=== PATIENT | female | born 1960 | race Caucasian/White ===

== ENCOUNTER 2020-02-26 21:07 | Inpatient (IN) | payer MEDICAID ==
[~2020-02-26] VITALS: Ht 165.1 cm; Wt 66.7 kg
[2020-02-26 21:15] VITALS: BP 117/66
--- NOTE | 2020-02-26 21:15 | NUR ---
ms technology intern note patient received from EMS from [facility] as a direct admit. patient ambulated to bed. a/ox4. tolerating room air. respirations are even and unlabored. no s/s sob noted. c/o pain in right hand, informed awaiting doctors orders. in no apparent distress. iv access in LFA#20 patent and saline locked. ASPHALT PATCHER obtained vital signs and completed belongings list. initial physical assessment competed at this itme. skin assessment completed, photos taken and placed in chart. bed is low and locked, hob elevated in high fowlers, side rials up x2, jose juan light within reach. will continue to monitor.
[2020-02-26 22:30] VITALS: BP 117/66
[2020-02-26] MEDS ORDERED: QUET25TA PO (22:40)
[2020-02-26] MEDS ORDERED: LEVO50TA PO (22:40)
[2020-02-26] MEDS ORDERED: ATOR10TA PO (22:40)
[2020-02-26] MEDS ORDERED: ALLO100T PO (22:40)
--- NOTE | 2020-02-26 23:30 | NUR ---
DVT PUMPS APPLIED
[2020-02-27] MEDS ORDERED: ONDANSETRON HCL/PF 4 MG/2 ML VIAL IVP PRN
[2020-02-27] MEDS ORDERED: Z GUARD REMEDY 2 OZ OINT TP PRN
[2020-02-27] MEDS ORDERED: ZOLPIDEM TARTRATE 5 MG TABLET PO PRN
[2020-02-27] MEDS ORDERED: MAG HYDROX/AL HYDROX/SIMETH 30 ML UDC PO PRN
[2020-02-27] MEDS ORDERED: ACETAMINOPHEN 325 MG TABLET PO PRN
[2020-02-27] MEDS ORDERED: MAGNESIUM HYDROXIDE 30 ML UDC PO PRN
[2020-02-27] MEDS: IV NS 0.9% 1,000 ML IV PRN ×2 (00:02→18:27)
[2020-02-27] MEDS: MORPHINE SULFATE INJ 2 MG/ML DISP.SYRIN IV PRN ×3 (00:12→13:10)
--- NOTE | 2020-02-27 00:13 | NUR ---
MS RN NOTE ADMINISTERED PRN MORPHINE 2MG FOR PAIN 10/10 IN RIGHT HAND. WILL CONTINUE TO MONITOR.
[2020-02-27] MEDS ORDERED: VANCOMYCIN 1 GM in IV D5W 250ml IV ONE (01:00)
[2020-02-27] MEDS ORDERED: VANCOMYCIN 1 GM VIAL ONE (01:10)
--- NOTE | 2020-02-27 01:34 | NUR ---
MS RN NOTE CHARGE NURSE OVERRIDE VANCO 1GM D/T PHARMACY NOT AVAILABLE AT THIS TIME TO FORMULATE MEDICATION.
--- NOTE | 2020-02-27 05:42 | NUR ---
ms rn note administered morphine 2mg for pain 8/10 in right hand. will continue to monitor.
[2020-02-27 06:23] LABS: BASOPHILS % (AUTO) 0.2 % (0.0-2.0); EOSINOPHILS % (AUTO) 1.3 % (0.0-6.0); HEMATOCRIT 35 % (33-45); HEMOGLOBIN 11.6 g/dL (11.5-14.8); LYMPHOCYTES # (AUTO) 1.3 /CMM (0.8-4.8); LYMPHOCYTES % (AUTO) 17.8 % (20.0-44.0); MEAN CORPUSCULAR HGB CONC 33 g/dl (31.0-36.0); MEAN CORPUSCULAR VOLUME 89 fL (82-100); MONOCYTES # (AUTO) 0.5 /CMM (0.1-1.30); MONOCYTES % (AUTO) 6.9 % (2.0-12.0); NEUTROPHILS # (AUTO) 5.2 /CMM (1.8-8.9); NEUTROPHILS % (AUTO) 73.8 % (43.0-81.0); PLATELET COUNT (AUTO) 101 /CMM (150-450); RED BLOOD CELL COUNT(AUTO) 3.91 MIL/uL (4.0-5.2); WHITE BLOOD COUNT (AUTO) 7.1 K/uL (4.3-11.0)
[2020-02-27 06:34] LABS: ALBUMIN 2.8 g/dL (3.4-5.0); BILIRUBIN,TOTAL 0.4 mg/dL (0.2-1.0); CALCIUM, SERUM 8.3 mg/dL (8.5-10.1); CREATININE 0.7 mg/dL (0.6-1.3); PHOSPHORUS 3.3 mg/dL (2.5-4.9); POTASSIUM 4.2 mmol/L (3.5-5.1); TOTAL PROTEIN, SERUM 6.4 g/dL (6.4-8.2)
[2020-02-27 06:35] LABS: THYROID STIMULATING HORMONE 3.559 uIU/mL (0.358-3.74)
[2020-02-27] MEDS: PANTOPRAZOLE 40 MG TABLET.DR PO SCH (06:45)
[2020-02-27] MEDS: LEVOTHYROXINE SODIUM 50 MCG TABLET PO SCH (06:45)
--- NOTE | 2020-02-27 06:55 | NUR ---
ms rn closing note patient bed. a/ox4. remains tolerating room air. respirations are even and unlabored. no resp distress noted. pain managed with morphine throughout shift.no distress noted. iv access maintained in LFA#20 running ns@75ml/hr. . bed remains low and locked, hob elevated in high fowlers, side rials up x2, call light within reach. will endorse to next shift.
[2020-02-27 08:00] VITALS: BP 105/58
--- NOTE | 2020-02-27 08:00 | NUR ---
MS RN NOTES PATIENT IN BED RESTING NO SOB OR ACUTE DISTRESS NOTED. PATIENT ALERT, ORIENTED X4. PERIPHERAL IV INTACT PATENT. SAFETY MEASURES IN PLACE. WILL CONTINUE TO MONITOR.
[2020-02-27] MEDS: ALLOPURINOL 100 MG TABLET PO SCH (08:45)
[2020-02-27] MEDS: VANCOMYCIN 0.75 GM in IV D5W 250 ML IV SCH ×2 (08:45→16:37)
[2020-02-27] MEDS ORDERED: AMOX/CLAVULANATE 875 MG TABLET PO SCH (09:00)
[2020-02-27] MEDS ORDERED: ENOXAPARIN SODIUM 40 MG/0.4 ML DISP.SYRIN SQ SCH (09:00)
--- NOTE | 2020-02-27 09:40 | NUR ---
WOUND CARE CONSULT: PT PRESENTS WITH RED LESION TO FOREHEAD AND WOUND TO RT 5TH FINGER, PRESENT ON ADMISSION. UNABLE TO DETERMINE DEPTH DUE TO TENDERNESS. RECOMMEND SURGICAL CONSULT. HEIKE NOTIFIED OF CONSULT REQUEST. CURRENT KADEEM SCORE IS 22. WILL SEE PRN. MEDINA IN AGREEMENT WITH PLAN OF CARE. Addendum: 02/27/20 at 0942 by JU CHISHOLM WNDNU Amended: Links added.
[2020-02-27 16:00] VITALS: BP 122/66
[2020-02-27] MEDS: QUETIAPINE FUMARATE 25 MG TABLET PO SCH (18:27)
[2020-02-27] MEDS: ATORVASTATIN 10 MG TABLET PO SCH (18:27)
--- NOTE | 2020-02-27 18:58 | NUR ---
MS RN NOTES PATIENT IN BED RESTING NO SOB OR ACUTE DISTRESS NOTED. ALL DUE MEDICATIONS ADMINISTERED. ALL NEEDS MET. NO ACUTE CHANGES NOTED DURING AM SHIFT. WILL ENDORSE CARE TO PM SHIFT.
--- NOTE | 2020-02-27 19:10 | NUR ---
RN OPENING NOTES Received patient, on bed, on RA, asleep. No s/sx of discomfort noted at this time. With IVF infusing well as ordered, no s/sx of infiltration noted. Kept on bed clean, dry and comfortable. On fall and aspiration precautions. Will continue to monitor accordingly.
[2020-02-27 20:00] VITALS: BP 107/64
[2020-02-27] MEDS: PIPERACILLIN /TAZOBACTAM 3.375 G in IV D5W 50 ML IV SCH (23:24)
[2020-02-28] MEDS: VANCOMYCIN 0.75 GM in IV D5W 250 ML IV SCH ×3 (00:21→18:27)
--- NOTE | 2020-02-28 04:52 | NUR ---
RN NOTES Per Pharmacy consult, vancomycin valley prior to the 4th dose. Thus, Vanco trough @ 0700AM. Notified assigned telemetry technician.
[2020-02-28] MEDS: PIPERACILLIN /TAZOBACTAM 3.375 G in IV D5W 50 ML IV SCH ×3 (05:45→17:50)
[2020-02-28] MEDS: MORPHINE SULFATE INJ 2 MG/ML DISP.SYRIN IV PRN (05:49)
[2020-02-28] MEDS: PANTOPRAZOLE 40 MG TABLET.DR PO SCH (06:39)
[2020-02-28] MEDS: LEVOTHYROXINE SODIUM 50 MCG TABLET PO SCH (06:40)
--- NOTE | 2020-02-28 06:52 | NUR ---
RN CLOSING NOTES Pt awake on bed. No new complaints made. Due meds given as ordered, no ASE noted. All nursing needs attended. R hand covered with dressing, clean, dry and intact. Kept on bed clean, dry and comfortable. On fall and aspiration precautions. Endorsed.
[2020-02-28 06:54] LABS: BASOPHILS % (AUTO) 0.6 % (0.0-2.0); EOSINOPHILS % (AUTO) 2.2 % (0.0-6.0); HEMATOCRIT 35 % (33-45); HEMOGLOBIN 11.5 g/dL (11.5-14.8); LYMPHOCYTES # (AUTO) 1.2 /CMM (0.8-4.8); LYMPHOCYTES % (AUTO) 22.2 % (20.0-44.0); MEAN CORPUSCULAR HGB CONC 33 g/dl (31.0-36.0); MEAN CORPUSCULAR VOLUME 90 fL (82-100); MONOCYTES # (AUTO) 0.5 /CMM (0.1-1.30); MONOCYTES % (AUTO) 8.2 % (2.0-12.0); NEUTROPHILS # (AUTO) 3.7 /CMM (1.8-8.9); NEUTROPHILS % (AUTO) 66.8 % (43.0-81.0); PLATELET COUNT (AUTO) 63 /CMM (150-450); RED BLOOD CELL COUNT(AUTO) 3.92 MIL/uL (4.0-5.2); WHITE BLOOD COUNT (AUTO) 5.6 K/uL (4.3-11.0)
[2020-02-28 07:12] LABS: CALCIUM, SERUM 8.7 mg/dL (8.5-10.1); CREATININE 0.8 mg/dL (0.6-1.3); MAGNESIUM 1.9 mg/dL (1.8-2.4); PHOSPHORUS 3.7 mg/dL (2.5-4.9); POTASSIUM 3.9 mmol/L (3.5-5.1)
--- NOTE | 2020-02-28 07:38 | NUR ---
RN OPENING NOTE Patient is resting in bed, A/O x4, showing no signs of acute distress or SOB, stable on RA. IV line in the LFEA #20g is clean and intact running NS @ 75mls/hour. Patient has no complaints of pain at this time. Bed is in lowest position, side rails x3 in upright position, call light is within reach, fall safety and aspiration precautions enforced. Will continue with plan of care.
[2020-02-28 07:54] VITALS: BP 125/69
[2020-02-28 08:00] VITALS: BP 125/69
[2020-02-28] MEDS: ALLOPURINOL 100 MG TABLET PO SCH (08:04)
[2020-02-28 08:18] LABS: BAND % (MANUAL) 1 % (0.0-5.0); LYMPHOCYTES % (MANUAL) 23 % (16-48); MONOCYTES % (MANUAL) 9 % (0-11.0); NEUTROPHILS % (MANUAL) 67 (42-76)
--- NOTE | 2020-02-28 09:04 | NUR ---
RN NOTE Vanco trough level 22. Hold dose per pharmacy.
[2020-02-28] MEDS: IV NS 0.9% 1,000 ML IV PRN (11:37)
[2020-02-28] MEDS: HYDROCODONE/APAP 5/325MG TABLET PO PRN (14:54)
[2020-02-28 15:52] VITALS: BP 114/63
[2020-02-28 16:30] VITALS: BP 114/63
--- NOTE | 2020-02-28 16:54 | NUR ---
RN NOTE PETROL TANKER DRIVER notified that patient is MRSA +, bactroban ordered via telephone order.
[2020-02-28] MEDS: ATORVASTATIN 10 MG TABLET PO SCH (17:51)
[2020-02-28] MEDS: QUETIAPINE FUMARATE 25 MG TABLET PO SCH (17:51)
--- NOTE | 2020-02-28 18:03 | NUR ---
RN CLOSING NOTE Patient is resting in bed, A/O x4, showing no signs of acute distress or SOB, stable on RA. IV line in the LFEA #20g is clean and intact running NS @ 75mls/hour. Patient has no complaints of pain at this time. Wound care completed as ordered. All patient needs met, all due medications given, patient kept clean and dry throughout shift. Bed is in lowest position, side rails x3 in upright position, call light is within reach, fall safety and aspiration precautions enforced. Will endorse to night patrol inspector.
[2020-02-28 20:00] VITALS: BP 120/59
--- NOTE | 2020-02-28 20:00 | NUR ---
bradly initial notes received report from am nurse and seen pt in bed awake and alert playing her cellphone . denies any pain or any discomfort. only she requested have a snacks. kept her comfortable at all times. will continue monitoring. encourage her to use the call light if she needs some help or need the nurse .
[2020-02-28] MEDS: MUPIROCIN OINT 2% 22 GM TUBE NS SCH (21:17)
--- NOTE | 2020-02-29 | NUR ---
seal skinner notes resting at this time without any distress or any discomfort . will continue monitoring. call light at reach.
[2020-02-29] MEDS: PIPERACILLIN /TAZOBACTAM 3.375 G in IV D5W 50 ML IV SCH ×3 (00:22→11:36)
[2020-02-29] MEDS: HYDROCODONE/APAP 5/325MG TABLET PO PRN ×2 (03:36→11:36)
--- NOTE | 2020-02-29 03:36 | NUR ---
ms bradly notes /co pain on her right hand , 8 , norco tablet given as ordered. crackers also served to prevent pt to have upset stomach from pain medication. Pt stated:thank you". will continue monitoring.
[2020-02-29] MEDS: VANCOMYCIN 0.75 GM in IV D5W 250 ML IV SCH (05:54)
[2020-02-29 07:18] LABS: CALCIUM, SERUM 8.8 mg/dL (8.5-10.1); CREATININE 0.6 mg/dL (0.6-1.3)
[2020-02-29] MEDS: LEVOTHYROXINE SODIUM 50 MCG TABLET PO SCH (07:28)
[2020-02-29] MEDS: PANTOPRAZOLE 40 MG TABLET.DR PO SCH (07:28)
--- NOTE | 2020-02-29 07:33 | NUR ---
ms topper press operator automatic closing notes pt awake and alert eating her breakfast now without any distress or any discomfort noted. all due meds given and all needs met. stable nelly the night. kept her comfortable at all times. will continue monitoring. endorse .
--- NOTE | 2020-02-29 07:44 | NUR ---
RN OPENING NOTE Patient is resting in bed, A/O x4, showing no signs of acute distress or SOB, stable on RA. IV line in the LFA #22g is clean and intact running NS @ 75mls/hour. Patient has no complaints of pain at this time. Bed is in lowest position, side rails x3 in upright position, call light is within reach, fall safety and aspiration precautions enforced. Will continue with plan of care.
[2020-02-29 08:00] VITALS: BP 102/58
[2020-02-29] MEDS: MUPIROCIN OINT 2% 22 GM TUBE NS SCH (08:59)
[2020-02-29] MEDS: ALLOPURINOL 100 MG TABLET PO SCH (09:00)
[2020-02-29] MEDS ORDERED: HYDR-4384 PO (10:41)
[2020-02-29] MEDS ORDERED: DOXY100C2 PO (10:41)
[2020-02-29] MEDS ORDERED: AMOX-430 PO (10:41)
--- NOTE | 2020-02-29 13:20 | NUR ---
HEAVY MOBILE EQUIPMENT REPAIRER NOTE Patient is medically cleared for discharge. A/Ox4, showing no signs of acute distress or SOB, stable on RA. Patient is able to ambulate by herself without assitance. Indepedent with care and BRP. Skin assessed, photos taken and placed in chart. Wound care completed as ordered. DC instructions/teachign provided to the patient, patient verbalized understanding. Prescription given to patient. All belongings are checked and with patient. All patient needs met, all due medications given, patient given a sponge bath and kept clean and dry. IV removed, ID band removed. Will be picked up by friend, Ty, en route to home.
== END 2020-02-29 13:10 | disposition home or self-care (01) | DRG 384 ==
LOC: MED 21:07
PROVIDERS: ADMIT Hospitalist; ATTEND Nurse Practitioner Acute Care
DX: S61.206A Unspecified open wound of right little finger without damage to nail, initial encounter (principal); L03.011 Cellulitis of right finger; E03.9 Hypothyroidism, unspecified; E78.5 Hyperlipidemia, unspecified; Z90.5 Acquired absence of kidney; F19.90 Other psychoactive substance use, unspecified, uncomplicated; Z88.2 Allergy status to sulfonamides; X58.XXXA Exposure to other specified factors, initial encounter; Y92.89 Other specified places as the place of occurrence of the external cause
CPT/HCPCS: 36415; 73130-TC; 80048-TC; 80053-TC; 80061-TC; 80202-TC; 83735-TC; 84100-TC; 84443-TC; 85025-TC; 87081-TC; A6407; G0378; J2270; J2543; J3370; J7030; J7060